=== PATIENT | male | born 1990 | race Caucasian/White ===

== ENCOUNTER 2021-05-18 08:23 | Emergency (ER) | payer SELFPAY ==
[2021-05-18 08:30] VITALS: BP 154/68; PULSE 98; RESP 18; TEMP 36.6; O2SAT 98
[2021-05-18 09:07] LABS: Basophils Absolute Auto 0.1 K/mm3 (0.0-0.1); Basophils Percent Auto 0.7 % (0.2-1.2); Eosinophils Absolute Auto 0.1 K/mm3 (0-0.3); Eosinophils Percent Auto 1.5 % (0-4.4); Hematocrit 43.4 % (42.0-52.0); Hemoglobin 14.2 g/dL (14.0-18.0); Immature Granulocyte Absolute 0.01 K/mm3 (0.00-0.031); Immature Granulocyte Percent A 0.1 % (0-0.5); Lymphocytes Percent Auto 22.2 % (18.3-44.2); Mean Corpuscular HGB Conc 32.7 g/dl (32-36); Mean Corpuscular Hemoglobin 30.1 pg (26-34); Mean Corpuscular Volume 92.1 fl (80-100); Mean Platelet Volume 9.1 fl (7.4-10.4); Monocytes Absolute Auto 0.5 K/mm3 (0.1-0.6); Monocytes Percent Auto 7.1 % (2.6-8.5); Neutrophils Absolute Auto 4.9 K/mm3 (1.3-6.7); Neutrophils Percent Auto 68.4 % (45.5-73.1); Platelet Count Result 242 k/mm3 (150-375); Red Blood Count 4.71 M/mm3 (4.6-6.20); Red Cell Distribution Width 12.5 % (11.5-14.5); White Blood Count 7.2 K/mm3 (4.5-10.0)
--- NOTE | 2021-05-18 09:13 | ED.GENADULT ---
HPI - General Adult General Chief complaint: Upper Respiratory Infection Stated complaint: asthma Time Seen by Provider: 05/18/21 08:45 Source: patient History of Present Illness HPI narrative: Patient is a 30 y/o male complaining of moderate SOB prior to arrival. He states that he has history of asthma. He is out of inhaler. He used someone else's inhaler, which did not help immediately. However, he is feeling better at this time and he does not feel SOB. He denies any cough of chest pain. Related Data Home Medications Medication Instructions Recorded Confirmed albuterol 05/18/21 budesonide mg 05/18/21 escitalopram oxalate 10 mg 05/18/21 Allergies Allergy/AdvReac Type Severity Reaction Status Date / Time No Known Allergies Allergy Verified 05/18/21 08:49 Review of Systems Review of Systems: All systems reviewed & are unremarkable except as noted in HPI and below Constitutional: Constitutional: Denies chills, Denies fever(s), Denies headache(s) and Denies weakness Eyes: Eyes: Denies blurry vision ENT: Denies headache(s) and Denies neck pain Cardiovascular: Cardiovascular: Denies chest pain and Reports dyspnea Respiratory: Respiratory: Denies cough and Reports dyspnea Gastrointestinal: Gastrointestinal: Denies abdominal pain, Denies diarrhea, Denies nausea and Denies vomiting Genitourinary: Genitourinary: Denies hematuria and Denies dysuria Musculoskeletal: Musculoskeletal: Denies back pain and Denies neck pain Neurologic: Denies headache(s) and Denies weakness PMFSH Social History Social History Gender identity (if verbalized by the patient): Male Exam Const: General: no acute distress and well developed Orientation/consciousness: oriented to person, oriented to place, oriented to time and patient oriented x3 HENMT: Head: normocephalic Ears: external ears normal General nose exam: Normal external nose present Eyes: General: appearance normal, both eyes and all related structures Conjunctivae: conjunctivae normal Neck: Neck: normal visual inspection and full ROM Chest: Chest palpation & inspection: normal inspection of the chest and no tenderness Resp: Effort & Inspection: normal respiratory effort Auscultation: clear to auscultation bilaterally Cardio: Rate: regular rate Rhythm: regular rhythm GI: GI Palp: No abdominal tenderness and Yes Soft to palpation Skin: General skin exam: normal color and turgor normal Neuro: General: oriented to person, oriented to place, oriented to time and patient oriented x3 Cognition (Neuro): normal cognition Extrem: General: normal to inspection, full ROM and no pedal edema Psych: Appearance: grossly normal Mental Status: mental status grossly normal Affect: normal affect Course Reevaluation(s) Reevaluation #1: Rechecked. Patient states that he feels well, not SOB at this time. He does not want Xray. He is request refill for inhaler and Nebulizer vials. Date: 05/18/21 Time: 09:27 Vital Signs Vital signs: Vital Signs Temperature 36.6 C 05/18/21 08:30 Pulse Rate 98 05/18/21 08:30 Respiratory Rate 18 05/18/21 08:30 Blood Pressure 154/68 H 05/18/21 08:30 Pulse Oximetry 98 05/18/21 08:30 Temperature 36.6 C 05/18/21 08:30 Pulse Rate 76 05/18/21 09:41 Respiratory Rate 18 05/18/21 09:41 Blood Pressure 145/87 H 05/18/21 09:41 Pulse Oximetry 98 05/18/21 09:41 Medical Decision Making Vital Signs Vital Signs: Vital Signs Temperature 36.6 C 05/18/21 08:30 Pulse Rate 98 05/18/21 08:30 Respiratory Rate 18 05/18/21 08:30 Blood Pressure 154/68 H 05/18/21 08:30 Pulse Oximetry 98 05/18/21 08:30 Temperature 36.6 C 05/18/21 08:30 Pulse Rate 76 05/18/21 09:41 Respiratory Rate 18 05/18/21 09:41 Blood Pressure 145/87 H 05/18/21 09:41 Pulse Oximetry 98 05/18/21 09:41 Lab Data Result diagrams: 05/18/21 09:01
[2021-05-18 09:16] LABS: Alanine Aminotransferase 32 U/L (4-50); Albumin Level 4.6 g/dL (3.5-5.1); Alkaline Phosphatase 66 U/L (38-126); Anion Gap 9 mmol/L (8-16); Aspartate Amino Transferase 30 U/L (17-59); Bilirubin,Total 0.5 mg/dL (0.2-1.3); Blood Urea Nitrogen 14 mg/dL (9-20); Calcium 9.9 mg/dL (8.4-10.2); Carbon Dioxide 28 mmol/L (22-30); Chloride 102 mmol/L (98-107); Estimated CRCL calculation 105 ml/min; Estimated Glomerular Filt Rate > 60; Glucose 106 mg/dL (65-110); Potassium 3.6 mmol/L (3.4-5.0); Sodium 139 mmol/L (137-145)
[2021-05-18 09:41] VITALS: BP 145/87; PULSE 76; RESP 18; O2SAT 98
== END 2021-05-18 09:45 | disposition home or self-care (01) ==
PROVIDERS: Emergency Provider Emergency Medicine
DX: J45.909 Unspecified asthma, uncomplicated (principal)
CPT/HCPCS: 36415; 80053; 85025; 99283

== ENCOUNTER 2021-06-07 12:07 | Emergency (ER) | payer SELFPAY ==
[2021-06-07] VITALS (7 sets, daily range): BP systolic 115–152; BP diastolic 76–90; PULSE 54–98; RESP 18–20; TEMP 36.7–37.1; O2SAT 98–100
--- NOTE | 2021-06-07 12:13 | PC.NURSE ---
Patient tells me that the last time he was seen for this he had a colonoscopy done and they told me it was a fissure or something, I don't even know. He reports this was several years ago. States that over the last few years he has a small bleed and eating fiber usually makes this go away. This event is worse and that has patient concerned at time.
--- NOTE | 2021-06-07 12:49 | ED.GIBLEED ---
HPI - GI Bleed General Chief complaint: GI Bleed Stated complaint: BLOOD IN STOOL Time Seen by Provider: 06/07/21 12:34 History of Present Illness HPI Narrative: 30 yo male presents to the ED with multiple complaints. His primary complaint is rectal bleeding. He reports that this morning he felt something like a cramp in his rectum. Shortly after this he had a bowel movement with a large amount of bright red blood. He only had one episode. He has had similar symptoms in the past. He had a colonoscopy and was told that he had a fissure. He also complains of mild left testicular pressure while urinating for the past week. No dysuria, hematuria, discharge, swelling, mass. He also reports worsening of chronic GERD. No abdominal pain. Related Data Home Medications Medication Instructions Recorded Confirmed budesonide mg 05/18/21 escitalopram oxalate 10 mg 05/18/21 hydroxyzine HCl 06/07/21 Allergies Allergy/AdvReac Type Severity Reaction Status Date / Time No Known Allergies Allergy Verified 06/07/21 12:15 Review of Systems Review of Systems: All systems reviewed & are unremarkable except as noted in HPI and below Constitutional: Constitutional: Denies chills and Denies fever(s) Cardiovascular: Cardiovascular: Denies chest pain Respiratory: Respiratory: Denies dyspnea Gastrointestinal: Gastrointestinal: Denies abdominal pain, Reports constipation, Reports diarrhea, Denies nausea and Denies vomiting Genitourinary: Genitourinary: Denies hematuria, Denies genital lesions, Denies dysuria, Denies penile discharge and Denies urinary frequency Musculoskeletal: Musculoskeletal: Denies back pain Neurologic: Denies dizziness, Denies numbness and Denies weakness Psychiatric: Psychiatric: Reports anxiety PMFSH Past Medical History Medical History Anal fissure Anxiety Chronic GERD Social History Social History Gender identity (if verbalized by the patient): Male Exam Const: General: healthy appearing, no acute distress and alert Orientation/consciousness: patient oriented x3 HENMT: Head: normal to inspection Neck: Neck: normal visual inspection Resp: Effort & Inspection: normal respiratory effort Auscultation: clear to auscultation bilaterally, no rales, no rhonchi and no wheezes Cardio: Jugular venous distension: no JVD Rate: regular rate Rhythm: regular rhythm Heart sounds: no murmurs GI: Inspection: non-distended GI Palp: Yes Soft to palpation and No Tenderness to palpation present (GI) Rectal Exam: visual inspection normal, normal sphincter tone, Abnormal stool present blood-tinged stool, No External hemorrhoid(s) present, No Internal hemorrhoid(s) present, No Anal fissure(s) present and No hemorrhoids Other: Normal prostate : Male General Exam: Yes normal external exam Penis: Yes normal penis Scrotum: scrotum normal Testes: Testes normal, no epidiymal tenderness, no masses, no testicular mass, no testicular swelling and no testicular tenderness Skin: General skin exam: normal color Neuro: General: patient oriented x3 and moves all extremities Speech: normal speech Extrem: General: normal to inspection Psych: Appearance: well kempt Affect: Anxious affect present Course Vital Signs Vital signs: Vital Signs Temperature 37.1 C 06/07/21 12:08 Pulse Rate 98 06/07/21 12:08 Respiratory Rate 20 06/07/21 12:08 Blood Pressure 152/84 H 06/07/21 12:08 Pulse Oximetry 100 06/07/21 12:08 Temperature 36.7 C 06/07/21 13:36 Pulse Rate 73 06/07/21 13:36 Respiratory Rate 18 06/07/21 13:36 Blood Pressure 125/79 06/07/21 13:36 Pulse Oximetry 98 06/07/21 13:36 MDM - GI Bleed MDM Narrative Medical decision making narrative: Labs reassuring. Small amount of BRB on exam. Could be UC, Proctitis, constipation. He needs GI follow up. He does not want to pur
--- NOTE | 2021-06-07 12:53 | PC.NURSE ---
Patient up to the bathroom at this time.
[2021-06-07 13:22] LABS: Basophils Absolute Auto 0.1 K/mm3 (0.0-0.1); Basophils Percent Auto 0.6 % (0.2-1.2); Eosinophils Absolute Auto 0.1 K/mm3 (0-0.3); Eosinophils Percent Auto 1.3 % (0-4.4); Hematocrit 44.3 % (42.0-52.0); Hemoglobin 14.6 g/dL (14.0-18.0); Immature Granulocyte Absolute 0.04 K/mm3 (0.00-0.031); Immature Granulocyte Percent A 0.5 % (0-0.5); Lymphocytes Absolute Auto 1.08 K/mm3 (0.9-3.2); Mean Corpuscular Hemoglobin 30.7 pg (26-34); Mean Corpuscular Volume 93.1 fl (80-100); Mean Platelet Volume 9.4 fl (7.4-10.4); Monocytes Absolute Auto 0.5 K/mm3 (0.1-0.6); Monocytes Percent Auto 6.9 % (2.6-8.5); Neutrophils Absolute Auto 5.9 K/mm3 (1.3-6.7); Neutrophils Percent Auto 76.7 % (45.5-73.1); Platelet Count Result 247 k/mm3 (150-375); Red Blood Count 4.76 M/mm3 (4.6-6.20); Red Cell Distribution Width 12.5 % (11.5-14.5); White Blood Count 7.7 K/mm3 (4.5-10.0)
[2021-06-07 13:25] LABS: Add Urine Microscopic? NO; Appearance Urine Clear (Clear); Bilirubin Urine Negative (Negative); Blood Urine Negative (Negative); Color Urine Straw (Yellow); Glucose Urine UA Negative (Negative); Ketones Urine Negative (Negative); Leukocyte Esterase Ur Negative LEU/UL (Negative); Nitrate Urine Negative (Negative); Protein Urine Negative (Negative); Specific Grav Ur 1.005 (1.001-1.035); Urobilinogen Urine Negative mg/dL (<2.0)
[2021-06-07 13:32] LABS: Prothrombin Time 12.9 Seconds (11.1-14.7)
[2021-06-07 13:33] LABS: Partial Thromboplastin Time 33.7 SECONDS (22.3-36.8)
[2021-06-07 13:37] LABS: Alanine Aminotransferase 25 U/L (4-50); Albumin Level 4.7 g/dL (3.5-5.1); Alkaline Phosphatase 64 U/L (38-126); Anion Gap 8 mmol/L (8-16); Aspartate Amino Transferase 28 U/L (17-59); Bilirubin,Total 0.5 mg/dL (0.2-1.3); Blood Urea Nitrogen 13 mg/dL (9-20); Calcium 9.8 mg/dL (8.4-10.2); Carbon Dioxide 29 mmol/L (22-30); Chloride 99 mmol/L (98-107); Estimated CRCL calculation 105 ml/min; Estimated Glomerular Filt Rate > 60; Glucose 88 mg/dL (65-110); Potassium 3.8 mmol/L (3.4-5.0); Sodium 136 mmol/L (137-145)
== END 2021-06-07 15:07 | disposition home or self-care (01) ==
PROVIDERS: Physician Assistant; Emergency Provider Emergency Medicine
DX: K62.5 Hemorrhage of anus and rectum (principal); K21.9 Gastro-esophageal reflux disease without esophagitis; F41.9 Anxiety disorder, unspecified
CPT/HCPCS: 36415; 80053; 81003; 85025; 85610; 85730; 86850; 86900; 86901; 99283

== ENCOUNTER 2021-07-12 18:05 | Emergency (ER) | payer SELFPAY ==
[2021-07-12 18:07] VITALS: BP 145/84; PULSE 104; RESP 22; TEMP 37.2; O2SAT 97
[2021-07-12 21:00] VITALS: BP 162/79; PULSE 75; RESP 16; TEMP 37.1; O2SAT 100
--- NOTE | 2021-07-12 21:13 | ED.ASTHMA ---
HPI - Asthma General Chief Complaint: Asthma Stated Complaint: asthma difficulties Source: patient Mode of arrival: ambulatory Limitations: no limitations History of Present Illness HPI Narrative: Patient is a 30-year-old male complaining of an asthma attack but now states is resolved. Patient states he ran out of his albuterol and just here for refill. He does not want any neb treatments since his asthma attack has resolved. Denies any shortness of breath, chest pain abdominal pain, fever or chills Related Data Home Medications Medication Instructions Recorded Confirmed budesonide mg 05/18/21 escitalopram oxalate 10 mg 05/18/21 hydroxyzine HCl 06/07/21 Allergies Allergy/AdvReac Type Severity Reaction Status Date / Time No Known Allergies Allergy Verified 06/07/21 12:15 Review of Systems Review of Systems: All systems reviewed & are unremarkable except as noted in HPI and below Constitutional: Constitutional: Denies body ache(s), Denies chills, Denies excessive sweating, Denies fatigue, Denies fever(s), Denies headache(s), Denies lethargy, Denies malaise, Denies weakness and Denies weight loss Eyes: Eyes: Denies blurry vision, Denies change in vision and Denies loss of vision ENT: Denies dizziness, Denies ear discharge, Denies headache(s), Denies lip swelling, Denies epistaxis, Denies nasal congestion, Denies neck pain, Denies throat swelling and Denies tongue swelling Cardiovascular: Cardiovascular: Denies chest pain, Denies chest pain at rest, Denies chest pain with activity, Denies diaphoresis, Denies rapid heart rate, Denies edema, Denies irregular heart rhythm, Denies lightheadedness, Denies palpitations and Denies dyspnea on exertion Respiratory: Respiratory: Denies chest congestion, Denies hemoptysis and Denies dyspnea on exertion Gastrointestinal: Gastrointestinal: Denies abdominal pain, Denies melena, Denies hematochezia, Denies diarrhea, Denies nausea, Denies vomiting and Denies hematemesis Musculoskeletal: Musculoskeletal: Denies abnormal gait, Denies deformity, Denies joint swelling, Denies limited range of motion, Denies neck pain and Denies numbness Neurologic: Denies Abnormal speech present, Denies abnormal gait, Denies confusion, Denies dizziness, Denies headache(s), Denies focal weakness, Denies loss of vision, Denies numbness, Denies Other visual disturbances, Denies Sensory deficit (Neuro) and Denies weakness Psychiatric: Psychiatric: Denies confusion, Denies depression, Denies auditory hallucinations, Denies homicidal ideation and Denies suicidal ideation Endocrine: Endocrine: Denies cold intolerance, Denies excessive sweating, Denies fatigue, Denies heat intolerance and Denies palpitations Hematologic/Lymphatic: Hematologic/Lymphatic: Denies easy bleeding and Denies easy bruising Allergic/Immunologic: Allergic/Immunologic: Denies lip swelling, Denies throat swelling and Denies tongue swelling PMFSH Past Medical History Medical History Anal fissure Anxiety Chronic GERD Social History Social History Gender identity (if verbalized by the patient): Male Exam Const: General: cooperative, healthy appearing, comfortable, no acute distress, well developed, alert and awake; No confusion Orientation/consciousness: oriented to person, oriented to place, oriented to time, patient oriented x3 and No confusion Limitations: no limitations HENMT: Head: normal to inspection, normocephalic and atraumatic Ears: hearing grossly normal bilaterally, TM normal on the right and TM normal on the left General nose exam: Normal external nose present, Normal nares present and No nasal discharge present Face and sinus: normal facial exam Mouth: Yes Normal oral and palatal mucosa present, Yes lip normal, Yes tongue normal and Yes oropharynx normal Throat: posterior oropharynx normal, tonsils normal
[2021-07-12 21:40] VITALS: O2SAT 98
[2021-07-12] MEDS: ALBUTEROL SULFATE (*SP) AEROSOL 1 PUFF 2 PUFF INHALATION (22:18)
--- NOTE | 2021-07-12 22:18 | PC.NURSE ---
Contacted respiratory twice to come do treatment on patient.
== END 2021-07-12 22:29 | disposition home or self-care (01) ==
PROVIDERS: Emergency Provider Emergency Medicine
DX: J45.909 Unspecified asthma, uncomplicated (principal); F41.9 Anxiety disorder, unspecified; K21.9 Gastro-esophageal reflux disease without esophagitis
CPT/HCPCS: 94640; 99283; A9270